=== PATIENT | male | born 1980 | race Caucasian/White ===

== ENCOUNTER 2017-11-20 03:48 | Inpatient (IN) | payer SELFPAY ==
[2017-11-20 05:10] LABS: #Eosinphils 0.4 thou/uL (0.0-0.7); #Lymphocytes 0.6 thou/uL (1.20-3.40); #Monocytes 0.2 thou/uL (0.11-0.59); #Neutrophils 10.2 thou/uL (1.40-6.50); %Basophils 0.4 % (0.0-1.0); %Eosinophils 3.4 % (0.0-10.0); %Lymphocytes 5.1 % (21.0-51.0); %Monocytes 1.5 % (0.0-10.0); %Neutrophils 89.5 % (42.0-75.0); Hemoglobin 16.6 g/dL (14.0-18.0); Mean Corpuscular HGB CONC 34.7 g/dL (32.0-36.0); Mean Corpuscular Hemoglobin 31.7 pg (27.0-31.0); Mean Corpuscular Volume 91.5 fL (78.0-98.0); Mean Platelet Volume 6.8 fL (7.4-10.4); Platelet Count 286 thou/uL (130-400); RBC Distribution Width 11.6 % (11.5-14.5); Red Blood Cell (RBC) Count 5.22 mill/uL (4.70-6.10); White Blood Cell (WBC) Count 11.4 thou/uL (4.8-10.8)
[2017-11-20 05:24] LABS: ALT (SGPT) 13 U/L (8-55); AST (SGOT) 16 U/L (5-34); Albumin 3.8 g/dL (3.5-5.0); Alkaline Phosphatase 57 U/L (40-150); Anion Gap 12 mmol/L (10-20); BUN (Urea Nitrogen) 11 mg/dL (8.9-20.6); Calc. Creatinine Clearance 0 mL/min (70-130); Calcium 9.1 mg/dL (7.8-10.44); Carbon Dioxide 24 mmol/L (22-29); Chloride 106 mmol/L (98-107); Estimated GFR-MDRD 88; Globulin 3.3 g/dL (2.4-3.5); Glucose 155 mg/dL (70-105); Potassium 4.2 mmol/L (3.5-5.1); Protein, Total 7.1 g/dL (6.0-8.3); Sodium 138 mmol/L (136-145)
[2017-11-20 05:28] LABS: CKMB 4.1 ng/mL (0-6.6); Troponin I Less than 0.010 ng/mL (< 0.028)
[2017-11-20] MEDS ORDERED: methylPREDNISolone Sod Succ/PF 125 MG/2 ML VIAL ONE (10:21)
--- NOTE | 2017-11-20 11:24 | RAD ---
CHEST ONE VIEW: HISTORY: Difficulty breathing at home. COMPARISON: 11/26/2016 FINDINGS: Normal cardiac silhouette. The pulmonary vessels and hilum are normal. The costophrenic angles are clear. No consolidation or mass. No pneumothorax or osseous abnormalities. IMPRESSION: No acute cardiopulmonary process. POS: [facility]
[2017-11-20] MEDS ORDERED: Acetaminophen 650 MG Suppository PR PRN (12:28)
[2017-11-20] MEDS ORDERED: Acetaminophen 325 MG TAB PO PRN (12:28)
[2017-11-20] MEDS ORDERED: Bisacodyl 5 MG TAB PO PRN (12:28)
--- NOTE | 2017-11-20 12:57 | HP ---
PRIMARY CARE PROVIDER: None. CHIEF COMPLAINT: Shortness of breath. HISTORY OF PRESENT ILLNESS: Mr. Chauhan is a pleasant 37-year-old gentleman, who was seen at [facility] on 11/20/2017. He reports that over the last week he has had shortness of breath. He reports shortness of breath wi th exertion as well as with lying down. He reports cough that is productive of greenish sputum now, sputum was clear a couple of days ago. He denies any fevers or chills. He denies any nausea or vomi ting. He also reports wheezing. He denies any abdominal pain. He denies any vomiting or diarrhea. He denies any chest pain. He denies any recent flu like symptoms. REVIEW OF SYSTEMS: All other systems reviewed and found to be negative. PAST MEDICAL HISTORY: 1. Irregular heartbeat, patient is unsure of diagnosis, 2. Hypertension. 3. Peripheral vascular disease. PAST SURGICAL HISTORY: None. SOCIAL HISTORY: The patient is an ex-smoker. He denies any current tobacco use, alcohol use, or rec reational drug use. FAMILY HISTORY: Significant for hypertension. ALLERGIES: No known drug allergies. CURRENT MEDICATIONS: DuoNeb p.r.n. PHYSICAL EXAMINATION: GENERAL: Mr. Chauhan is awake and alert, not in acute distress. VITAL SIGNS: Blood pressure is 139/94, pulse 106, respiratory rate 18, and oxygen saturation 92% on room air. He is afebrile. EYES: No scleral icterus. No conjunctival pallor. ENT: Moist mucosal membranes, no oropharyngeal erythema or exudates. NECK: Supple, nontender. Trachea is midline. RESPIRATORY: Accessory muscles of breathing are mildly active. Chest wall movements are symmetric b ilaterally. LUNGS: Reveals diffuse expiratory wheeze. CARDIOVASCULAR: S1 and S2 are heard, tachycardic and regular. Peripheral pulses palpable. No carot id bruit, no pericardial rub. ABDOMEN: Soft, nontender, bowel sounds are heard, no hepatomegaly, no splenomegaly. NEUROLOGIC: Cranial nerves II-XII intact. Deep tendon reflexes are 2+. MUSCULOSKELETAL: Power is 5/5 in all 4 extremities. Normal range of movement at all major extremity joints. SKIN: Multiple tattoos. No rashes or subcutaneous nodules. LYMPHATIC: No cervical lymphadenopathy. PSYCHIATRIC: Normal mood, normal affect, patient is oriented to person, place, and time. LABORATORY DATA: Mr. Chauhan's labs and investigations were reviewed. I reviewed his electrocardiog janna, which shows sinus tachycardia, no ST changes to suggest an acute coronary syndrome. I also revi ewed his chest x-ray, which does not show any pulmonary infiltrates. He has leukocytosis with 11,400 white cells, of which 89.5% are neutrophils, normal hemoglobin, normal platelet count, normal D-dime r of 0.39, unremarkable comprehensive metabolic profile and normal troponin I. ASSESSMENT AND PLAN: Mr. Chauhan is a pleasant 37-year-old gentleman, who was seen at [facility] on 11/20/2017. His problem list includes: 1. Acute hypoxic respiratory failure: Mr. Chauhan is presenting with acute hypoxic respiratory fail ure, with room air oxygen saturations of 86%, most likely secondary to chronic obstructive pulmonary disease exacerbation. He was never formally diagnosed with chronic obstructive pulmonary disease exa cerbation, but his presentation is consistent with chronic obstructive pulmonary disease or asthma ex acerbation. He will be admitted to the hospital for further management. 2. Chronic obstructive pulmonary disease exacerbation. He will be treated with oxygen, steroids, br onchodilators, and antibiotics. Once he is medically stable, he will be advised outpatient pulmonary function test. 3. Hypertension: The patient is currently not on new medications. We will monitor vital signs and add antihypertensives as needed. 4. Peripheral vascular disease: Appears to be stable. 5. Sinus tachycardia: Most likely secondary to chronic obstructive pulmonary disease exacerbation. If it persists when his symptoms improve, then we will need to look into other possibilities. For n ow, I am ordering a TSH level. 6. Given his history of orthopnea, we will also check a BNP level. LEVEL OF RISK: High. LEVEL OF COMPLEXITY: High.
[2017-11-20] MEDS: Azithromycin 500 MG in Sodium Chloride 0.9% 250 ML 250 ML IVPB SCH (14:27)
[2017-11-20] MEDS: cefTRIAXone\\ROCEPHIN 1 GM in Sodium Chloride 0.9% 100 ML IVPB SCH (15:49)
[2017-11-21 06:22] LABS: #Basophils 0.1 thou/uL (0.0-0.2); #Lymphocytes 0.6 thou/uL (1.20-3.40); #Monocytes 0.4 thou/uL (0.11-0.59); #Neutrophils 11.8 thou/uL (1.40-6.50); %Basophils 0.5 % (0.0-1.0); %Lymphocytes 4.7 % (21.0-51.0); %Monocytes 3.3 % (0.0-10.0); %Neutrophils 91.5 % (42.0-75.0); Hemoglobin 16.9 g/dL (14.0-18.0); Mean Corpuscular Hemoglobin 31.7 pg (27.0-31.0); Mean Corpuscular Volume 93.3 fL (78.0-98.0); Mean Platelet Volume 7.6 fL (7.4-10.4); Platelet Count 298 thou/uL (130-400); RBC Distribution Width 11.8 % (11.5-14.5); Red Blood Cell (RBC) Count 5.32 mill/uL (4.70-6.10); White Blood Cell (WBC) Count 12.9 thou/uL (4.8-10.8)
[2017-11-21 06:43] LABS: Anion Gap 9 mmol/L (10-20); BUN (Urea Nitrogen) 16 mg/dL (8.9-20.6); Calc. Creatinine Clearance 144 mL/min (70-130); Calcium 9.2 mg/dL (7.8-10.44); Carbon Dioxide 27 mmol/L (22-29); Chloride 106 mmol/L (98-107); Estimated GFR-MDRD Greater than 90; Glucose 136 mg/dL (70-105); Potassium 4.9 mmol/L (3.5-5.1); Sodium 137 mmol/L (136-145)
[2017-11-21] MEDS: Enoxaparin Sodium 40 MG/0.4 ML SYRINGE SC SCH (09:33)
[2017-11-21] MEDS ORDERED: Sodium Chloride 0.9% 10 ML ONE (12:25)
[2017-11-21] MEDS ORDERED: Chloraseptic Spray 180 ml Bottle PO PRN (13:35)
[2017-11-21] MEDS: Azithromycin 500 MG in Sodium Chloride 0.9% 250 ML 250 ML IVPB SCH (13:47)
--- NOTE | 2017-11-21 14:19 | PDOC.PN ---
- Subjective Encounter Start Date: 11/21/17 Encounter Start Time: 10:00 Patient seen and examined for Resp failure. Wheezing +. SOB on minimal exertion. No other complaints. Events noted. - Objective MAR Reviewed: Yes Vital Signs & Weight: Vital Signs (12 hours) Temp Pulse Resp BP Pulse Ox 11/21/17 14:16 115 H 24 H 95 11/21/17 12:22 97.3 F L 104 H 20 138/83 98 11/21/17 11:08 114 H 24 H 95 11/21/17 08:10 98.1 F 101 H 20 129/75 98 11/21/17 07:15 95 11/21/17 07:12 111 H 24 H 95 11/21/17 04:00 97.6 F 103 H 20 131/80 98 Weight Weight 201 lb 14.4 oz I&O: 11/20/17 11/21/17 11/22/17 06:59 06:59 06:59 Intake Total 400 Balance 400 Result Diagrams: 11/21/17 05:44 11/22/17 05:35 EKG Reviewed by me: Yes (Tele SR) Phys Exam - Physical Examination Constitutional: NAD (at rest) Respiratory: no rales, wheezing present Symmetrical, Mild accessory muscle use Cardiovascular: RRR, no rub no heaves/pulsations Gastrointestinal: soft, non-tender, no distention, positive bowel sounds Musculoskeletal: no edema Neurological: non-focal, normal sensation, moves all 4 limbs Psychiatric: normal affect, A&O x 3 Dx/Plan - Plan respiratory therapy, DVT proph w/lovenox, DVT proph w/SCDs IMPRESSION: 1. Acute hypoxic respiratory failure due to ?Asthma exacerbation 2. ?Moderate persistent asthma 3. Former smoker 4. HTN 5. Sinus tachycardia 6. ?Hyperthyroidism PLAN: Cont Ceftriaxone/Azithromycin Cont IV Solumedrol Add Pepcid while on steroids Await Pulmonary input Change Nebs to Q4h Review of Systems - Review of Systems Constitutional: negative: fever, chills, sweats, weakness, malaise, other Cardiovascular: negative: chest pain, palpitations, orthopnea, paroxysmal nocturnal dyspnea, edema, light headedness, other Gastrointestinal: negative: Nausea, Vomiting, Abdominal Pain, Diarrhea, Constipation, Melena, Hematochezia, Other - Medications/Allergies Allergies/Adverse Reactions: Allergies Allergy/AdvReac Type Severity Reaction Status Date / Time No Known Drug Allergies Allergy Verified 11/20/17 18:07 Medications: Current Medications Acetaminophen (Tylenol) 650 mg PO Q4H PRN PRN Reason: Headache/Fever or Pain Acetaminophen (Tylenol) 650 mg OR Q4H PRN PRN Reason: Headache/Fever or Pain Albuterol/Ipratropium (Duoneb) 3 ml NEB [id number] [id number] Last Admin: 11/21/17 14:16 Dose: 3 ml Albuterol/Ipratropium (Duoneb) 3 ml NEB [id number] PRN PRN Reason: SOB &/or Wheezing Bisacodyl (Dulcolax) 10 mg PO DAILYPRN PRN PRN Reason: Constipation Enoxaparin Sodium (Lovenox) 40 mg SC 0900 [facility] Last Admin: 11/21/17 09:33 Dose: Not Given Famotidine (Pepcid) 20 mg PO BID STAN Azithromycin 500 mg/ Sodium (Chloride) 250 mls @ 250 mls/hr IVPB Q24HR [facility] Last Admin: 11/21/17 13:47 Dose: 250 mls Ceftriaxone Sodium 1 gm/ (Sodium Chloride) 100 mls @ 200 mls/hr IVPB 1400 [facility] Last Admin: 11/20/17 15:49 Dose: 100 mls Methylprednisolone Sodium Succinate (Solu-Medrol) 40 mg IVP Q6HR [facility] Last Admin: 11/21/17 12:25 Dose: 40 mg Phenol (Chloraseptic [place] 180 Ml Bot) 0 ml PO BIDPRN PRN PRN Reason: Sore Throat Throat Lozenges (Cepastat Lozenges) 1 rosalia PO Q2H PRN PRN Reason: Sore Throat
[2017-11-21] MEDS ORDERED: Albuterol Sulfate 2.5 mg/3 ml Neb NEB PRN (14:53)
[2017-11-21] MEDS: Cepastat Lozenges 1 LOZ PO PRN ×2 (14:58→20:16)
[2017-11-21] MEDS ORDERED: Furosemide 40 MG TAB PO SCH (15:30)
[2017-11-21] MEDS ORDERED: guaiFENesin ER 600 MG TAB PO SCH ×2 (15:30→21:00)
[2017-11-21] MEDS: cefTRIAXone\\ROCEPHIN 1 GM in Sodium Chloride 0.9% 100 ML IVPB SCH (17:05)
[2017-11-21 19:36] LABS: Amphetamine Detected (NotDetected); Barbiturates Screen Not Detected (NotDetected); Benzodiazepine Screen Not Detected (NotDetected); Cocaine Metabolite Screen Not Detected (NotDetected); Medtox Control Line Valid? VALID (VALID); Medtox Reader # READER 4; Methadone Not Detected (NotDetected); Methamphetamine Detected (NotDetected); Opiate Screen Not Detected (NotDetected); Oxycodone Screen Not Detected (NotDetected); Phencyclidine (PCP) Not Detected (NotDetected); THC/Cannabinoid Screen Not Detected (NotDetected); Tricyclic Screen Not Detected (NotDetected)
--- NOTE | 2017-11-21 19:50 | CON ---
DATE OF CONSULTATION: 11/21/2017 SERVICE: Pulmonary Medicine. REASON FOR CONSULTATION: Respiratory failure. HISTORY OF PRESENT ILLNESS: The patient is a 37-year-old white male. He has got about a [id number] history of smoking, but quit smoking 2 years ago. He stopped because he started having increasing dyspnea with exertion. He also noted increasing shortness of breath that would wake him up from sleep. This has been going on for about 2.5 years and has been very slowly to progress over this period of time. Frequently, he has some sort of an exacerbation and gets exposed to noxious smell or perfume that ends up causing him to have coughing fits and shortness of breath. He has had a slow progressive decline in function. On multiple occasions, he went to the Emergency Department, but all was dismissed from the ER. He is only on ipratropium and albuterol in the outpatient setting. He will use his friend's medications and his friend's oxygen in order to get by. He feels that whenever he comes to the hospital, they will fix this problem. They make him feel better for a couple of hours and then dismiss him. As such, he stopped calling for any assistance. He stopped coming into the emergency department. On this occasion, it was so severe that he felt that he was passing away. As such, EMS Services were contacted and he was sick enough to be admitted to the hospital. He says occasionally he will bring up a little dark green sputum or white sputum. That being said, his sputum production has not been too terribly uncharacteristic for him. He denies any current fevers, chills, nausea or vomiting. He does have multiple features consistent with sleep apnea. Otherwise, he is in his usual state of health. Overnight, he got steroids, nebulized medications, and essentially has returned to his baseline, but is afraid to go home once again. PAST MEDICAL HISTORY: 1. Peripheral vascular disease. 2. Hypertension. 3. Asthma, suspected. PAST SURGICAL HISTORY: None. SOCIAL HISTORY: The patient has a [id number] history of smoking, but quit 2 years ago. He denies any current alcohol, tobacco or illicit drug use. 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 He did not always wear a respirators when he was working with the equipment and cutting it. He has no exposure to chemicals, dust, asbestosis or tuberculosis otherwise. He has been working for over 8 months because he is not able to carry the equipment to and from the projects because of dyspnea FAMILY HISTORY: Noncontributory. ALLERGIES: No known drug allergies. MEDICATIONS: List of his inpatient medications was reviewed. Multiple updates were made at this time. REVIEW OF SYSTEMS: General, head, ears, eyes, nose, throat, cardiovascular, respiratory, GI, , musculoskeletal, neurologic and skin is negative except as mentioned in the HPI. PHYSICAL EXAMINATION: VITAL SIGNS: Afebrile, pulse 114, blood pressure 138/83, respirations 20, saturation 98% on 3 liters nasal cannula. GENERAL: The patient is awake, alert, no apparent distress. LUNGS: Decent air entry. Rhonchi and crackles are both present. Wheezing is extensive. It is present throughout bilateral inspiratory and expiratory phases. There is a slightly prolonged expiratory phase, but he is moving pretty decent air. HEART: Normal rate. Tachycardic. Regular. ABDOMEN: Soft, nontender, nondistended. Bowel sounds positive. MUSCULOSKELETAL: No cyanosis or clubbing. There is trace 1+ pitting in the bilateral lower extremities. NEUROLOGIC: Grossly nonfocal. LABORATORY DATA: WBC 12.9. Eosinophil count historically has been elevated, but on this visit, it falls within the normal limits. WBC 12.9, hemoglobin 16.9 , platelets 298,000. D-dimer 0.39. Basic metabolic profile is essentially unremarkable. Liver function studies are unremarkable. BNP falls within normal limits. Troponin is negative x1. TSH is 0.14. IMAGING DATA: Chest x-ray demonstrates no acute cardiopulmonary abnormality. Cardiac silhouette is normal. ASSESSMENT: 1. Acute hypoxic respiratory failure. 2. Asthma with acute exacerbation, suspected. 3. Minimal volume overload. 4. Hyperthyroidism, possible. DISCUSSION AND PLAN: We will continue our nebulize medications and steroids. We will add Singulair. We will check an IgE level with tomorrow morning's laboratories. Historically, the patient had elevated eosinophil levels. My suspicion is that we are truly dealing with asthma. It looked at the CT scan from a couple of years ago and he did not have any horrendous emphysematous changes present. We will check an echocardiogram to make certain that there is no hard component to his presentation. I will give him a single dose of Lasix. Pulmonary or Critical Care will continue to follow along for the time being, but if he is in his usual state of health by tomorrow, he can be considered for transition home provided we will find anything else of. That being said, on discharge from the hospital stay this time around, he needs to go home on a combination of long-acting beta agonist/inhaled corticosteroid as well as Singulair. I will follow up with him in the outpatient setting and we will screen for sleep apnea. 70 minutes have been devoted to this patient in various activities. I personally reviewed all imaging studies and laboratory data noted within this document. For fifty percent of this time, I was interacting with the patient at the bedside or coordinating care with the care team. For the remainder of the time I was immediately available to the patient in the hospital unit. MALIA
[2017-11-21] MEDS: Montelukast Sodium 10 mg Tablet PO SCH (20:16)
[2017-11-21] MEDS ORDERED: Famotidine 20 MG TAB PO SCH (21:00)
[2017-11-22 06:13] LABS: Anion Gap 9 mmol/L (10-20); BUN (Urea Nitrogen) 19 mg/dL (8.9-20.6); Calc. Creatinine Clearance 144 mL/min (70-130); Calcium 8.8 mg/dL (7.8-10.44); Carbon Dioxide 29 mmol/L (22-29); Chloride 103 mmol/L (98-107); Estimated GFR-MDRD Greater than 90; Glucose 106 mg/dL (70-105); Sodium 137 mmol/L (136-145)
[2017-11-22] MEDS: Enoxaparin Sodium 40 MG/0.4 ML SYRINGE SC SCH (08:52)
[2017-11-22] MEDS: predniSONE 20 MG TAB PO SCH (08:52)
[2017-11-22] MEDS: guaiFENesin ER 600 MG TAB PO SCH ×2 (08:53→20:34)
[2017-11-22] MEDS: Azithromycin 500 MG in Sodium Chloride 0.9% 250 ML 250 ML IVPB SCH (11:44)
[2017-11-22] MEDS: cefTRIAXone\\ROCEPHIN 1 GM in Sodium Chloride 0.9% 100 ML IVPB SCH (13:08)
--- NOTE | 2017-11-22 14:30 | PRG ---
DATE OF SERVICE: 11/22/2017 SERVICE: Pulmonary Medicine. INTERVAL HISTORY: The patient is doing outstanding from a respiratory standpoint. His breathing is actually pretty close to baseline. That being said, he has got a little bit of room for improvement. He denies any current chest pain, nausea, or vomiting. He has been able to walk around the room without difficulties. His sputum production is actually improving. PHYSICAL EXAMINATION: VITAL SIGNS: Afebrile, pulse 90, blood pressure 132/76, respirations 16, saturation 98% on room air. GENERAL: The patient is awake and alert, in no apparent distress. LUNGS: Decent air entry. This is actually much improved. There is less rhonchi today. No crackles are appreciated. There is a prolonged expiratory phase with polyphonic wheezing still present, but it is less extensive during the inspiratory phase. HEART: Normal rate, regular. ABDOMEN: Soft, nontender, nondistended. Bowel sounds are positive. MUSCULOSKELETAL: No cyanosis or clubbing. No pitting in the bilateral lower extremities. NEUROLOGIC: Grossly nonfocal. LABORATORY DATA: Basic metabolic profile is essentially unremarkable to date. Urine drug screen is positive for methamphetamines, amphetamines, though the patient says that he has not used this in several years rather (been using Sudafed recently). ASSESSMENT: 1. Acute hypoxic respiratory failure, resolved. 2. Asthma with acute exacerbation, resolving. 3. Minimal volume overload, now euvolemic. 4. Hyperthyroidism, possible. DISCUSSION AND PLAN: We will continue our antibiotics, nebulized medications and steroids. I provided the patient a prescription for Breo and Singulair to fill in the outpatient setting. He was also asked to contact [facility] if he cannot afford the medication to see if he qualifies for their indigent program. He understands that these are likely going to be life-long medications for him. I would like for him to follow up with me in the outpatient setting, so we can investigate whether or not a polysomnogram is indicated. If at any point his finances are in order and he can pursue these things, I have asked for him to get into contact with me. From my perspective, if the echocardiogram today looks okay, he can be considered for transition home today or tomorrow. MALIA
--- NOTE | 2017-11-22 17:50 | PDOC.PN ---
- Subjective Encounter Start Date: 11/22/17 Encounter Start Time: 10:30 Patient seen and examined for Resp failure. SOB and wheezing slightly better. Dry cough. No new complaints. No overnight events - Objective MAR Reviewed: Yes Vital Signs & Weight: Vital Signs (12 hours) Temp Pulse Resp BP Pulse Ox 11/22/17 15:40 98.6 F 90 18 131/66 94 L 11/22/17 13:00 97 20 98 11/22/17 11:42 98.8 F 90 16 132/76 94 L 11/22/17 07:38 97.8 F 78 18 121/81 95 11/22/17 06:50 96 20 94 L Weight Weight 201 lb 14.4 oz I&O: 11/21/17 11/22/17 11/23/17 06:59 06:59 06:59 Intake Total 400 1200 Output Total 1100 Balance 400 100 Result Diagrams: 11/21/17 05:44 11/22/17 05:35 EKG Reviewed by me: Yes (Tele SR) Phys Exam - Physical Examination Constitutional: NAD Respiratory: no rales, wheezing present Cardiovascular: RRR, no rub Gastrointestinal: soft, non-tender, positive bowel sounds Musculoskeletal: no edema Neurological: moves all 4 limbs Psychiatric: A&O x 3 Dx/Plan - Plan DVT proph w/SCDs IMPRESSION: 1. Acute hypoxic respiratory failure due to ?Asthma exacerbation 2. ?Moderate persistent asthma 3. Former smoker 4. HTN 5. Sinus tachycardia 6. ?Hyperthyroidism PLAN: Cont IV Solumedrol/Cont Ceftriaxone/Azithromycin Cont Nebs Ambulate Review of Systems - Review of Systems Cardiovascular: negative: chest pain, palpitations, orthopnea, paroxysmal nocturnal dyspnea, edema, light headedness, other Gastrointestinal: negative: Nausea, Vomiting, Abdominal Pain, Diarrhea, Constipation, Melena, Hematochezia, Other - Medications/Allergies Allergies/Adverse Reactions: Allergies Allergy/AdvReac Type Severity Reaction Status Date / Time No Known Drug Allergies Allergy Verified 11/20/17 18:07 Medications: Current Medications Acetaminophen (Tylenol) 650 mg PO Q4H PRN PRN Reason: Headache/Fever or Pain Acetaminophen (Tylenol) 650 mg SD Q4H PRN PRN Reason: Headache/Fever or Pain Albuterol Sulfate (Ventolin) 2.5 mg NEB Q2H PRN PRN Reason: SOB &/or Wheezing Albuterol/Ipratropium (Duoneb) 3 ml NEB [id number] PRN PRN Reason: SOB &/or Wheezing Albuterol/Ipratropium (Duoneb) 3 ml NEB [id number] [facility] Last Admin: 11/22/17 13:00 Dose: 3 ml Bisacodyl (Dulcolax) 10 mg PO DAILYPRN PRN PRN Reason: Constipation Enoxaparin Sodium (Lovenox) 40 mg SC 0900 [facility] Last Admin: 11/22/17 08:52 Dose: 40 mg Guaifenesin (Mucinex) 1,200 mg PO Q12HR [facility] Last Admin: 11/22/17 08:53 Dose: 1,200 mg Azithromycin 500 mg/ Sodium (Chloride) 250 mls @ 250 mls/hr IVPB Q24HR [facility] Last Admin: 11/22/17 11:44 Dose: 250 mls Ceftriaxone Sodium 1 gm/ (Sodium Chloride) 100 mls @ 200 mls/hr IVPB 1400 [facility] Last Admin: 11/22/17 13:08 Dose: 100 mls Montelukast Sodium (Singulair) 10 mg PO QPM [facility] Last Admin: 11/21/17 20:16 Dose: 10 mg Phenol (Chloraseptic [place] 180 Ml Bot) 0 ml PO BIDPRN PRN PRN Reason: Sore Throat Prednisone (Prednisone) 40 mg PO QAM-[facility] Stop: 12/04/17 08:01 Last Admin: 11/22/17 08:52 Dose: 40 mg Throat Lozenges (Cepastat Lozenges) 1 rosalia PO Q2H PRN PRN Reason: Sore Throat Last Admin: 11/21/17 20:16 Dose: 1 rosalia
[2017-11-22] MEDS: Montelukast Sodium 10 mg Tablet PO SCH (20:34)
[2017-11-23] MEDS: predniSONE 20 MG TAB PO SCH (08:38)
[2017-11-23] MEDS: guaiFENesin ER 600 MG TAB PO SCH (08:38)
[2017-11-23 11:47] VITALS: BP 133/79; TEMP 97.8
--- NOTE | 2017-11-23 11:54 | PRG ---
DATE OF SERVICE: 11/23/2017 SERVICE: Pulmonary Medicine. INTERVAL HISTORY: The patient is doing great from a respiratory standpoint. He is breathing comfortably. There has been no interval change to his condition. Denies any chest pain, nausea, vomiting, fevers, or chills. His breathing has actually improved dramatically. Otherwise, there is no interval change to his condition. Echocardiogram was done yesterday, which was completely reassuring. PHYSICAL EXAMINATION: VITAL SIGNS: Afebrile, pulse 82, blood pressure 137/74, respirations 16, saturation 97% on room air. GENERAL: The patient is awake, alert, in no apparent distress. LUNGS: Decent air entry with minimal wheezing today. There is no rhonchi today. There is a minimally prolonged expiratory phase as well. HEART: Normal rate, regular. ABDOMEN: Soft, nontender, nondistended. Bowel sounds positive. MUSCULOSKELETAL: No cyanosis or clubbing. There is no pitting in the bilateral lower extremities. NEUROLOGIC: Grossly nonfocal. IMAGING DATA: Echocardiogram demonstrates normal ejection fraction, and no valvular abnormalities. ASSESSMENT: 1. Acute hypoxic respiratory failure, resolved. 2. Asthma with acute exacerbation. 3. Hyperthyroidism, unlikely. DISCUSSION AND PLAN: The patient will go home on a 14-day course of steroids. I have set him up with Hernán to be taken in the outpatient setting. I do believe he has sleep apnea. I would like for him to follow up with me in clinic to arrange for him to have a polysomnogram. That being said, finances are tight and we will prevent him from getting the appropriate outpatient studies. As such, we will leave our door open, and he will visit with me once he can secure insurance. In the meantime, I have given him some resources to investigate sleep apnea on his own. From my perspective, he is stable for transition home today. MALIA
--- NOTE | 2017-11-24 10:08 | DIS ---
DATE OF DISCHARGE: 11/23/2017 DISCHARGE DISPOSITION: Home. FOLLOWUP: Follow up with primary care physician at [facility] in 1 week[address] Follow up with Dr. Concepcion in 2 weeks. ALLERGIES: No known drug allergies. The patient was seen and examined on the day of discharge. Denies any wheezing or cough. Feels much better. DISCHARGE MEDICATIONS: Albuterol nebulizer as needed, Mucinex for 1 week, azithromycin 250 mg daily for 1 week, Breo Ellipta 200/25 daily, Singulair 10 mg daily, prednisone taper. BRIEF HOSPITAL COURSE: Patient is a 37-year-old male with hypertension, who presented to the [facility] with worsening shortness of breath along with wheezing. He has been using nebulizer for the last 6 months. His symptoms got worse, for which he presented to the emergency room. In the emergency room, his workup was consistent with acute hypoxic respiratory failure with O2 satur ation of 86%. He was monitored on the telemetry. He was started on empiric antibiotics along with s teroids and nebulizer treatment. Echocardiogram was performed that showed ejection fraction 60%-65% with normal diastolic function. There was mild tricuspid regurgitation and trace mitral regurgitatio n. The patient was evaluated by Pulmonary, Dr. Concepcion, as well. He was advised to follow up with Amanda Concepcion as outpatient. FINAL DIAGNOSES: 1. Acute hypoxic respiratory failure, resolved. 2. Asthma with acute exacerbation. 3. Urine drug screen positive for amphetamines and methamphetamines. 4. Abnormal TSH at 0.1462. 5. History of questionable, moderate, persistent asthma, requiring nebulizer treatment for the last 6 months on a daily basis. 6. Sinus tachycardia, secondary to #1. 7. Hypertension, currently not requiring any medications. 8. Former smoker. TESTS PENDING AT DISCHARGE: IgE level. Plan of care was discussed with the patient in detail and he stated understanding. The patient was extensively counseled on lifestyle modification.
== END 2017-11-23 12:11 | disposition home or self-care (01) | DRG 189 ==
LOC: ERS 03:48 → ERHOLD 06:10 → 2NO 17:22
PROVIDERS: ADMIT Internal Medicine; ATTEND Internal Medicine
DX: J96.01 Acute respiratory failure with hypoxia (principal); J44.1 Chronic obstructive pulmonary disease with (acute) exacerbation; J45.901 Unspecified asthma with (acute) exacerbation; I10 Essential (primary) hypertension; I73.9 Peripheral vascular disease, unspecified; Z87.891 Personal history of nicotine dependence; R00.0 Tachycardia, unspecified; E03.9 Hypothyroidism, unspecified
CPT/HCPCS: 36415; 71045; 80048; 80053; 80306; 82553; 82785; 83880; 84443; 84484; 85025; 85379; 93005; 93306; 94640; 94760; 99406; A4216; J0456; J0696; J1650; J2920; J2930; J3475; J7050; J7506; J7620

== ENCOUNTER 2024-11-13 18:47 | Emergency (ER) | payer OTHER ==
[2024-11-13] MEDS ORDERED: Azithromycin 500 MG VIAL ONE (19:47)
[2024-11-13] MEDS ORDERED: cefTRIAXone (ROCEPHIN) 2 GM VIAL ONE (19:47)
[2024-11-13] MEDS ORDERED: Magnesium 2 GM/50 ML BAG (IN WATER) ONE (19:47)
[2024-11-13] MEDS ORDERED: Ketorolac Tromethamine 30 MG (1 mL) VIAL ONE (19:47)
[2024-11-13 20:50] LABS: #Basophils 0.07 10x3/uL (0.0-0.2); #Eosinophils 0.19 10x3/uL (0.0-0.7); #Monocytes 0.60 10x3/uL (0.11-0.59); #Neutrophils 7.58 10x3/uL (1.40-6.50); %Basophils 0.8 % (0.0-1.0); %Eosinophils 2.1 % (0.0-10.0); %Lymphocytes 5.7 % (21.0-51.0); %Monocytes 6.7 % (0.0-10.0); %Neutrophils 84.5 % (42.0-75.0); Hematocrit 46.3 % (42.0-52.0); Hemoglobin 16.3 g/dL (14.0-18.0); Mean Corpuscular Hemoglobin 31.1 pg (27.0-31.0); Mean Corpuscular Volume 88.4 fL (78.0-98.0); Platelet Count 199 10x3/uL (130-400); Red Blood Cell (RBC) Count 5.24 mill/uL (4.70-6.10); White Blood Cell (WBC) Count 8.97 10x3/uL (4.8-10.8)
[2024-11-13 21:10] LABS: ALT (SGPT) 42 U/L (Less than 45); AST (SGOT) 43 U/L (11-34); Albumin 3.4 g/dL (3.1-4.5); Alkaline Phosphatase 73 U/L (40-110); Anion Gap 14 mmol/L (10-20); BUN (Urea Nitrogen) 13 mg/dL (8.9-20.6); Bilirubin, Total 0.5 mg/dL (0.3-1.2); Calc. Creatinine Clearance 0 mL/min (70-130); Calcium 8.4 mg/dL (7.8-10.44); Carbon Dioxide 23 mmol/L (22-29); Chloride 109 mmol/L (98-107); Globulin 3.3 g/dL (2.4-3.5); Glucose 143 mg/dL (70-105); Potassium 4.3 mmol/L (3.5-5.1); Sodium 142 mmol/L (136-145)
== END 2024-11-13 23:45 | disposition home or self-care (01) ==
LOC: ERS 18:47
DX: J44.1 Chronic obstructive pulmonary disease with (acute) exacerbation (principal); Z79.51 Long term (current) use of inhaled steroids; Z87.891 Personal history of nicotine dependence
CPT/HCPCS: 71045; 80053; 83605; 83880; 84484; 85025; 93005; 94760; J0456; J0696; J1885; J3475; J7620

== ENCOUNTER 2024-12-29 09:17 | Emergency (ER) | payer OTHER ==
[2024-12-29 10:26] LABS: #Basophils 0.12 10x3/uL (0.0-0.2); #Eosinophils 1.14 10x3/uL (0.0-0.7); #Monocytes 0.78 10x3/uL (0.11-0.59); #Neutrophils 5.56 10x3/uL (1.40-6.50); %Basophils 1.2 % (0.0-1.0); %Eosinophils 11.4 % (0.0-10.0); %Lymphocytes 23.7 % (21.0-51.0); %Monocytes 7.8 % (0.0-10.0); %Neutrophils 55.7 % (42.0-75.0); Hematocrit 46.6 % (42.0-52.0); Hemoglobin 15.9 g/dL (14.0-18.0); Mean Corpuscular Hemoglobin 30.1 pg (27.0-31.0); Mean Corpuscular Volume 88.3 fL (78.0-98.0); Platelet Count 256 10x3/uL (130-400); Red Blood Cell (RBC) Count 5.28 mill/uL (4.70-6.10); White Blood Cell (WBC) Count 9.99 10x3/uL (4.8-10.8)
[2024-12-29] MEDS ORDERED: Albuterol 2.5 MG (3 mL) NEB ONE (10:41)
[2024-12-29] MEDS ORDERED: Ipratropium Bromide 2.5 ml Neb ONE (10:41)
[2024-12-29 11:00] LABS: ALT (SGPT) 31 U/L (Less than 45); AST (SGOT) 26 U/L (11-34); Albumin 3.4 g/dL (3.1-4.5); Alkaline Phosphatase 70 U/L (40-110); Anion Gap 8 mmol/L (10-20); BUN (Urea Nitrogen) 10 mg/dL (8.9-20.6); Bilirubin, Total 0.9 mg/dL (0.3-1.2); Calc. Creatinine Clearance 0 mL/min (70-130); Calcium 8.9 mg/dL (7.8-10.44); Carbon Dioxide 28 mmol/L (22-29); Chloride 105 mmol/L (98-107); Globulin 3.0 g/dL (2.4-3.5); Glucose 115 mg/dL (70-105); Potassium 4.2 mmol/L (3.5-5.1); Sodium 137 mmol/L (136-145)
== END 2024-12-29 13:21 | disposition home or self-care (01) ==
LOC: ERS 09:17
DX: J44.1 Chronic obstructive pulmonary disease with (acute) exacerbation (principal); Z87.891 Personal history of nicotine dependence; Z79.899 Other long term (current) drug therapy
CPT/HCPCS: 71045; 80053; 83880; 84484; 85025; 93005; 94760; 96374; J2919; J7611; J7644